=== PATIENT | male | born 1950 | race Caucasian/White ===

== ENCOUNTER 2019-11-24 12:27 | Outpatient (RCR) | payer MEDICARE, MEDICAID, SELFPAY ==
[2019-11-24 12:52] LABS: Add Urine Microscopic? NO; Urine Appearance Clear (CLEAR); Urine Color Yellow (Yellow); pH Urine 7 (5-7)
[2019-11-24 12:53] LABS: Bilirubin Urine Neg (NEGATIVE); Blood Urine Neg (Negative); Glucose Urine UA Norm (Normal); Ketones Urine Negative (Negative); Leukocyte Esterase Urine Negative (Negative); Nitrate Urine Negative (Negative); Protein Urine Neg (Negative); Urobilinogen Urine Norm (Negative)
[2019-11-26 07:25] LABS: Influenza A by IFA Negative (Negative); Influenza B by IFA Positive (Negative)
== END 2019-12-08 23:59 | disposition home or self-care (01) ==
LOC: LAB 12:27
PROVIDERS: Family Provider Family Medicine; Referring Provider Family Medicine; Visit Provider Family Medicine
DX: N18.3 Chronic kidney disease, stage 3 (moderate) (principal); R30.0 Dysuria; Z20.828 Contact with and (suspected) exposure to other viral communicable diseases
CPT/HCPCS: 81003; 87086; 87804

== ENCOUNTER 2020-03-23 15:24 | Emergency (ER) | payer MEDICARE, MEDICAID, SELFPAY ==
[2020-03-23 15:27] VITALS: BP 119/101; PULSE 83; RESP 25; TEMP 36.4; O2SAT 93; BMI 25.0
--- NOTE | 2020-03-23 15:49 | XRR_ITS ---
PROCEDURE INFORMATION: Exam: XR Chest, 1 View Exam date and time: 03/23/2020 4:35 PM Age: 70 years old Clinical indication: Shortness of breath; Additional info: Dyspnea/cough TECHNIQUE: Imaging protocol: XR of the chest Views: 1 view. COMPARISON: CR Chest 1 [place] [id number] 08/17/2019 5:06 AM FINDINGS: Lungs: No visible active interstitial or alveolar airspace disease. Probable component of COPD/chronic bronchitis. Senile fibrosis. Minimal parenchymal scar right lung base. Pleural space: Unremarkable. No pleural effusion. No pneumothorax. Heart/Mediastinum: Cardiomegaly. Arterial sclerosis. Bones/joints: No visible acute osseous abnormality within the field of view. XR/XR chest 1V portable [id number] IMPRESSION: Nonacute.
--- NOTE | 2020-03-23 15:51 | W.ED.NAVMDI ---
HPI - Nausea/Vomiting/Diarrhea General: Chief complaint: Nausea/Vomiting/Diarrhea Stated complaint: AMS; POSS ASPIRATION Time Seen by Provider: 03/23/20 15:29 History of Present Illness: HPI Narrative: 70-year-old male presents from the snf he is nonresponsive. He is a resident of there [facility] unit he was observed aspirating earlier today and then subsequently began having difficulty breathing became less responsive than normal and developed a low-grade fever they are concerned he has developed an aspiration pneumonia. No meaningful history derived from patient is he is only able to moan does need with acknowledge my presence in the room. Cording to the nursing snf notes he is a Do Not Recussitate Review of Systems General: Reports: ROS unobtainable due to medical condition and ROS unobtainable due to mental status PFSH ED PFSH: Medical History Asthma Chronic kidney disease COPD (chronic obstructive pulmonary disease) Dementia Hypertension Schizophrenia Social History Smoking and tobacco status: never smoked Physical Exam Neck/C-Spine: COMMON NORMALS: full ROM, no lymphadenopathy, supple, no meningeal signs and Thyroid normal THYROID: Thyroid normal and asymmetrical Lymph: LYMPHATIC: no lymphadenopathy noted Resp: EFFORT & INSPECTION: Yes abnormal respiratory pattern, Yes tachypneic, Yes respiratory distress, Yes labored, Yes grunting and Yes audible wheezes Cardio: COMMON NORMALS: regular rate and regular rhythm RATE: regular rate RHYTHM: regular rhythm HEART SOUNDS: no murmurs GI: COMMON NORMALS: Normal to inspection, nondistended, normoactive bowel sounds present, Soft to palpation and No hepatosplenomegaly present PALPATION: Yes Soft to palpation and Yes No hepatosplenomegaly present : COMMON NORMALS: Yes no CVA tenderness BLADDER/KIDNEY EXAM: Yes no CVA tenderness Back/Pelvis: COMMON NORMALS: no CVA tenderness LUMBAR SPINE/LOWER BACK: Yes normal to inspection Extremity: COMMON NORMALS: no clubbing, cyanosis or edema, no calf tenderness and no pedal edema Neuro: MENINGEAL SIGNS: Yes no meningeal signs Course Vital Signs: Vital signs: Vital Signs Temperature 97.5 F L 03/23/20 15:27 Pulse Rate 68 03/23/20 21:10 Respiratory Rate 18 03/23/20 21:10 Blood Pressure 114/75 03/23/20 21:10 Pulse Oximetry 96 03/23/20 21:10 MDM - Nausea/Vomiting/Diarrhea MDM Narrative: Medical decision making narrative: Patient comes in with aspiration pneumonia and dementia COPD acute severe hyponatremia and mild hypokalemia. His prognosis is poor he is a Do Not Recussitate with dementia discussed with the family her next of kin they would prefer to just do comfort cares will discharge him back to the snf comfort cares with hospice consult. Lab Data: Labs: Lab Results 03/23/20 03/23/20 Range/Units 16:12 16:12 WBC 16.6 H (4.0-10.0) 10^3/ uL RBC 3.87 L (4.1-5.3) 10^6/u L Hgb 12.0 (11.7-16.6) g/dL Hct 34.2 L (42.0-52.0) % MCV 88.4 (80-94) fL MCH 31.0 (28.0-34.0) pg MCHC 35.1 (30.0-36.0) g/dL RDW 11.8 L (12.1-15.1) % Plt Count 270 (130-400) 10^3/c mm MPV 8.9 (7.4-10.4) fL Neut % (Auto) 89.7 % Lymph % (Auto) 4.9 % [place] % (Auto) 4.8 % Eos % (Auto) 0.0 % Baso % (Auto) 0.1 % Neut # (Auto) 14.9 H (1.8-7.7) 10^3/u L Lymph # (Auto) 0.8 (0.8-4.8) 10^3/u L [place] # (Auto) 0.8 (0.2-0.9) 10^3/u L Eos # (Auto) 0.0 (0.0-0.8) 10^3/u L Baso # (Auto) 0.0 (0.0-0.1) 10^3/u L Nucleated RBC % (a uto) 0 % Nucleated RBCs # 0.0 /100WBC Sodium 116 L* (136-145) mmol/L Potassium 3.3 L (3.5-5.1) mmol/L Chloride 81 L (98-107) mmol/L Carbon Dioxide 19 L (22-29) mmol/L Anion Gap 19.3 H (5-19) BUN 6 L (8-23) mg/dL Creatinine 0.6 L (0.7-1.2) mg/dL GFR Calculation 134.0 H (90-130) mL/min Glucose 170 H (65-115) mg/dL Calculated Osmolal ity 242 L (285-295) mOsm/k g Calcium 9.1 (8.5-10.5) mg/dL Total Bilirubin 0.4 (0.15-1.2) mg/dL AST 29 (0-40) U/L ALT 19 (0-41) U/L Alkaline Phosphata se 103 (40-130) IU/L Total Protein 6.9 (6.6-8.7) g/dL Albumin 4.0 (3.5-5.2) g/dL Globulin 2.9 (1.3-4.6) g/dL Discharge Plan Discharge Patient Disposition: Xfer [facility] Clinical Impression: Aspiration pneumonia, Dementia, Schizophrenia, COPD (chronic obstructive pulmonary disease), Chronic kidney disease, Acute hyponatremia, Acute hypokalemia Condition: Serious Referrals: Tyrell Mendoza MD [Primary Care Provider] - Discharge Diet: Full LIquid Discharge Activity: Bedrest and Oxygen as instructed Activity Restrictions/Additional Instructions: Discussed with family they wish for patient to be treated with comfort cares. Hospice consult. Discharge Date/Time: 03/23/20 21:12 Coding Level of Care Code ED [employer] Operator for [employer] Fwd Exam Comprehensive
[2020-03-23 16:21] LABS: Basophils % 0.1 %; Hematocrit 34.2 % (42.0-52.0); Lymphocytes # 0.8 10^3/uL (0.8-4.8); Lymphocytes % 4.9 %; Mean Corpuscular HGB Conc 35.1 g/dL (30.0-36.0); Mean Corpuscular Volume 88.4 fL (80-94); Mean Platelet Volume 8.9 fL (7.4-10.4); Monocytes # 0.8 10^3/uL (0.2-0.9); Monocytes % 4.8 %; Neutrophils # 14.9 10^3/uL (1.8-7.7); Neutrophils % 89.7 %; Nucleated Red Blood Cells % 0 %; Platelet Count 270 10^3/cmm (130-400); Red Blood Count 3.87 10^6/uL (4.1-5.3); Red Cell Distribution Width 11.8 % (12.1-15.1); White Blood Count 16.6 10^3/uL (4.0-10.0)
[2020-03-23 16:25] VITALS: BP 119/70; PULSE 94; RESP 24; O2SAT 98
[2020-03-23 16:46] LABS: Alanine Aminotransferase 19 U/L (0-41); Alkaline Phosphatase 103 IU/L (40-130); Anion Gap 19.3 (5-19); Aspartate Amino Transferase 29 U/L (0-40); Blood Urea Nitrogen 6 mg/dL (8-23); Calcium 9.1 mg/dL (8.5-10.5); Carbon Dioxide 19 mmol/L (22-29); Chloride 81 mmol/L (98-107); Globulin 2.9 g/dL (1.3-4.6); Glucose 170 mg/dL (65-115); Osmolality Calculated 242 mOsm/kg (285-295); Potassium 3.3 mmol/L (3.5-5.1); Total Bilirubin 0.4 mg/dL (0.15-1.2); Total Protein 6.9 g/dL (6.6-8.7)
[2020-03-23 17:03] LABS: Sodium 116 mmol/L (136-145)
[2020-03-23] MEDS: clindamycin 600 MG/50 ML PREMIX 100 MG IV (17:12)
[2020-03-23 17:25] VITALS: BP 114/75; PULSE 96; RESP 18; O2SAT 98
--- NOTE | 2020-03-23 17:45 | PC.NURSE ---
Order for hospice received, call made to [facility], spoke with Mike. He stated they were not taking any new patients that were in a facility because the facility is not allowing nursing visits. He took the patient information and said he would follow up on Wednesday.
[2020-03-23 18:14] VITALS: BP 118/91; PULSE 89; RESP 20; O2SAT 98
[2020-03-23 21:10] VITALS: BP 114/75; PULSE 68; RESP 18; O2SAT 96
== END 2020-03-23 21:12 ==
PROVIDERS: Emergency Provider Family Medicine; PCP Family Medicine
DX: J69.0 Pneumonitis due to inhalation of food and vomit (principal); F03.90 Unspecified dementia, unspecified severity, without behavioral disturbance, psychotic disturbance, mood disturbance, and anxiety; F20.9 Schizophrenia, unspecified; J44.9 Chronic obstructive pulmonary disease, unspecified; E87.1 Hypo-osmolality and hyponatremia; E87.6 Hypokalemia; I12.9 Hypertensive chronic kidney disease with stage 1 through stage 4 chronic kidney disease, or unspecified chronic kidney disease; N18.9 Chronic kidney disease, unspecified
CPT/HCPCS: 12345; 71045; 80053; 85025; 87040; 96365; 99281; 99283; J3490